=== PATIENT | male | born 1995 | race Two or more races ===

== ENCOUNTER 2021-06-28 08:52 | Emergency (ER) | payer SELFPAY ==
--- NOTE | 2021-06-28 09:11 | EDM.PDOC ---
ED HPI GENERAL MEDICAL PROBLEM - General Chief Complaint: Respiratory Problem Stated Complaint: COVID SYMPTOMS Time Seen by Provider: 06/28/21 09:11 Source of Information: Reports: Patient History Limitations: Reports: No Limitations - History of Present Illness INITIAL COMMENTS - FREE TEXT/NARRATIVE: 26-year-old male of [place] descent presents to the ED for evaluation of potential COVID-19 illness. He speaks broken E[place]rean. He seems to understand better than he can speak [place]an. Essentially he has mild nasal congestion ,mild sore throat and nonproductive cough that developed over the last day or 2. Mild associated headache and diffuse mild myalgia. He has no diarrhea nausea or vomiting. No fever or chills at this time. As far as he knows he is not been exposed to COVID-19 illness. Onset: Sudden Onset Date: 06/27/21 (Simón of nasal congestion and mild sore throat minimal cough.) Duration: Hour(s): Location: Reports: Face (Sore throat nasal congestion), Neck Quality: Reports: Other (No myalgia no nausea vomiting or diarrhea) Severity: Mild Improves with: Reports: None Worsens with: Reports: None Context: Reports: Sick Contact (Apparently another fellow in his workplace is ill with similar symptoms.). Denies: Activity, Exercise, Lifting, Trauma Associated Symptoms: Reports: Cough. Denies: No Other Symptoms, Confusion, Chest Pain, cough w sputum (Nonproductive), Diaphoresis, Fever/Chills, Headaches, Loss of Appetite, Malaise, Nausea/Vomiting, Rash, Seizure, Shortness of Breath, Syncope, Weakness Treatments [employer]: Reports: Other (see below) (None.) Headache Pain Score (Numeric/FACES): 5 - Related Data Allergies Allergy/AdvReac Type Severity Reaction Status Date / Time No Known Allergies Allergy Verified 06/28/21 09:25 Home Meds: Home Meds . [No Known Home Meds] 06/28/21 [History] Social & Family History - Living Situation & Occupation Living situation: Reports: Single Occupation: Employed ED ROS GENERAL - Review of Systems Review Of Systems: See Below Constitutional: Reports: Fatigue. Denies: Fever, Chills, Decreased Appetite, Weight Loss HEENT: Reports: Throat Pain (Mild sore throat starting yesterday), Other (Mild nasal congestion) Respiratory: Reports: Cough (Mild nonproductive cough starting this morning). Denies: Shortness of Breath, Wheezing, Pleuritic Chest Pain Cardiovascular: Reports: No Symptoms Endocrine: Reports: No Symptoms GI/Abdominal: Reports: No Symptoms : Reports: No Symptoms Musculoskeletal: Reports: Muscle Pain (Complaining of diffuse myalgia for 2 days) Skin: Reports: No Symptoms Neurological: Reports: Headache Psychiatric: Reports: No Symptoms Hematologic/Lymphatic: Reports: No Symptoms Immunologic: Reports: No Symptoms ED EXAM, GENERAL - Physical Exam Exam: See Below Exam Limited By: Language Barrier (Patient speaks broken Eritrean but has a pretty good understanding of E[place]rean language.) General Appearance: Alert, WD/WN, Anxious, Other (Temperature is 36.7 degrees. Heart rate 64 and sinus. Respiratory is 20 with O2 sats of 99% room air. BP 124/81.) Eye Exam: Bilateral Eye: Normal Inspection (No blepharal pallor or scleral icterus.) Ears: Normal TMs Throat/Mouth: Normal Inspection, Normal Lips, Normal Oropharynx, Other Head: Atraumatic (No oropharyngeal infection), Normocephalic Neck: Normal Inspection, Supple, Non-Tender, Full Range of Motion. No: Lymphadenopathy (L), Lymphadenopathy (R) Respiratory/Chest: No Respiratory Distress, Lungs Clear, Normal Breath Sounds, No Accessory Muscle Use. No: Rales, Rhonchi, Wheezing Cardiovascular: Normal Peripheral Pulses, Regular Rate, Rhythm, No Edema, No Gallop, No Murmur, No Rub Peripheral Pulses: 3+: Carotid (L), Carotid (R), Posterior Tibial (L), Posterior Tibial (R), Dorsalis Pedis (L), Dorsalis Pedis (R) GI/Abdominal: Normal Bowel Sounds, Soft, Non-Tender, No Organomegaly, No Mass, Pelvis Stable, Other (Scaphoid abdomen without scars.) (Male) Exam: No Hernia Back Exam: Normal Inspection, Full Range of Motion. No: CVA Tenderness (L), CVA Tenderness (R) Extremities: Normal Inspection, Normal Range of Motion, Non-Tender, No Pedal Edema Neurological: Alert, Oriented, CN II-XII Intact, Normal Cognition, Normal Gait Psychiatric: Normal Affect, Anxious Skin Exam: Warm, Dry, Intact, Normal Color (Mildly anxious), No Rash Course - Vital Signs Last Recorded V/S: Last Vital Signs Temp 36.7 C 06/28/21 09:18 Pulse 64 06/28/21 09:18 Resp 20 06/28/21 09:18 BP 124/81 06/28/21 09:18 Pulse Ox 99 06/28/21 09:18 - Orders/Labs/Meds Labs: Laboratory Tests 06/28/21 Range/Units 09:10 SARS-CoV-2 RNA ([facility]) Negative (NEGATIVE) - Radiology Interpretation Free Text/Narrative:: 26-year-old male of [place] descent presents to the ED at the request of his employer for COVID-19 screen. Reports he has had some headache mild sore throat nasal congestion minimal cough and generalized myalgia for the last 2 days. On examination he does not appear to be ill in any fashion or form. O2 sats were normal. Lungs were clear to osseous percussion minimal nasal congesti on ear nose and throat exam was otherwise normal. Plan COVID-19 screen to be done and 1 view chest x-ray - Re-Assessments/Exams Free Text/Narrative Re-Assessment/Exam: 06/28/21 11:00: B19 screen came back negative. Chest x-ray is also completely within normal limits showing normal heart size and mediastinum. He has slight scoliosis of the thoracic spine. Lungs are clear with no acute parenchymal changes. 06/28/21 11:32: I have discussed the findings with the patient. He will be discharged from the emergency department. He is cleared to return back to work with no restrictions. He will return to care if he develops further shortness of breath and/or cough. Departure - Departure Time of Disposition: 11:30 Disposition: Home, Self-Care 01 Condition: Fair Clinical Impression: Viral upper respiratory tract infection with cough - Discharge Information *PRESCRIPTION DRUG MONITORING PROGRAM REVIEWED*: Not Applicable *COPY OF PRESCRIPTION DRUG MONITORING REPORT IN PATIENT ALEKSANDRA: Not Applicable Instructions: Viral Respiratory Infection, [id number] Referrals: PCP,None [Primary Care Provider] - Forms: ED Department Discharge, ED Return to Work/School Form Additional Instructions: Evaluation in the emergency room today to rule out COVID-19 illness. 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 Chest x-ray was negative for any signs of Covid related pneumonia. The COVID-19 test also proved to be negative. Therefore you are cleared to return to work in full capacity with no restrictions. Sepsis Event Note (ED) - Focused Exam Vital Signs: Vital Signs Temp Pulse Resp BP Pulse Ox 06/28/21 09:18 36.7 C 64 20 124/81 99
--- NOTE | 2021-06-28 10:21 | CR ---
Chest: Portable view of the chest was obtained. Comparison: No previous chest imaging is available. Heart size and mediastinum are normal. Slight scoliosis is noted within the spine. Lungs are clear with no acute parenchymal change. Impression: 1. Nothing acute is seen on portable chest x-ray. Diagnostic code #2
== END 2021-06-28 11:40 | disposition home or self-care (01) ==
LOC: JD.ED 08:52
DX: J06.9 Acute upper respiratory infection, unspecified (principal); Z20.822 Contact with and (suspected) exposure to COVID-19
CPT/HCPCS: 71045; 71045-26; 99283; 99283-25; U0002